=== PATIENT | female | born 1960 | race Caucasian/White ===

== ENCOUNTER 2017-05-20 14:04 | Emergency (ER) | payer OTHER ==
[~2017-05-20] VITALS: Ht 160 cm; Wt 68.0 kg
[~2017-05-20 14:04] MED LIST: BENADRYL25 MG PO; CYCL10 PO; DIAZ5 PO; HYDMOR2 PO; Hydrochlorothia25 MG PO; LORA1 PO; METO100ER PO; Multiple Vitam1 EAC1 PO; Naproxen500 MG PO; Norco 7.5-3251 EACH PO; OXYACE5T PO; PRED20 PO; PROBIOTIC1 EAC1 PO; Pepcid40 MG PO; Prednisone20 MG PO; Requip3 MG PO; STOOL SOFTENER50 MG PO; TRAZ100 PO; Zofran Odt4 MG SL
[2017-05-20 14:38] LABS: BASOPHILS ABSOLUTE AUTO 0.03 K/mm3 (0.00-0.23); BASOPHILS PERCENT AUTO 0 % (0-2); EOSINOPHILS ABSOLUTE AUTO 0.08 K/mm3 (0.00-0.68); EOSINOPHILS PERCENT AUTO 1 % (0-6); Hematocrit 39.1 % (33.0-51.0); Hemoglobin 13.4 g/dL (11.5-16.0); IMMATURE GRAN ABSOLUTE AUTO 0.01 K/mm3 (0.00-0.10); IMMATURE GRAN PERCENT AUTO 0 % (0-1); LYMPHOCYTES ABSOLUTE AUTO 2.04 K/mm3 (0.84-5.20); LYMPHOCYTES PERCENT AUTO 23 % (21-46); MONOCYTES ABSOLUTE AUTO 0.57 K/mm3 (0.16-1.47); MONOCYTES PERCENT AUTO 7 % (4-13); Mean Corpuscular HGB 30.4 pg (26.0-34.0); Mean Corpuscular HGB Conc 34.3 g/dL (31.5-36.5); Mean Corpuscular Volume 89 fL (80-100); Mean Platelet Volume 9.1 fL (9.1-12.4); NEUTROPHILS ABSOLUTE AUTO 6.08 K/mm3 (1.96-9.15); NEUTROPHILS PERCENT AUTO 69 % (41-73); Platelet Count 239 K/mm3 (150-400); RDW Coefficient Variation 12.6 % (11.7-14.2); Red Blood Cell Count 4.41 M/mm3 (3.80-5.20); White Blood Cell Count 8.81 K/mm3 (4.00-11.30)
[2017-05-20 14:56] LABS: Alanine Aminotransfer (ALT/SGP 32 U/L (12-78); Albumin, Blood 4.1 g/dL (3.4-5.0); Alk Phos 98 U/L (50-136); Anion Gap 9 mmol/L (6-16); Aspartate Aminotrans (AST/SGOT 27 U/L (12-37); Bilirubin, Total 0.5 mg/dL (0.1-1.0); Blood Urea Nitrogen 10 mg/dL (8-24); Bun/Creatinine Ratio 15.1 (12.0-20.0); CO2, Blood 26 mmol/L (21-32); Calcium, Blood 8.9 mg/dL (8.5-10.1); Chloride, Blood 97 mmol/L (98-108); Creatinine, Blood 0.66 mg/dL (0.40-1.00); Glomerular Filtration Rate >60 (60-); Glucose, Blood 94 mg/dL (70-99); Potassium, Blood 3.8 mmol/L (3.5-5.5); Sodium, Blood 132 mmol/L (136-145); Total Protein, Blood 8.1 g/dL (6.4-8.2)
[2017-05-20] MEDS ORDERED: TIZANIDINE HCL2 MG PO (15:32)
[2017-05-20] MEDS ORDERED: METO50ER PO (15:33)
== END 2017-05-20 16:48 | disposition home or self-care (01) ==
LOC: ER 14:04
PROVIDERS: Emergency Medicine
DX: R29.90 Unspecified symptoms and signs involving the nervous system (principal); I10 Essential (primary) hypertension; Z79.1 Long term (current) use of non-steroidal anti-inflammatories (NSAID); Z79.899 Other long term (current) drug therapy; Z87.891 Personal history of nicotine dependence
CPT/HCPCS: 36415; 70450; 80053; 81000; 85025; 93005; 93010; 99284

== ENCOUNTER 2017-06-06 08:07 | Emergency (ER) | payer OTHER ==
[~2017-06-06] VITALS: Ht 160 cm; Wt 68.0 kg
[~2017-06-06 08:07] MED LIST changes: +METO50ER PO; +TIZANIDINE HCL2 MG PO
[2017-06-06] MEDS ORDERED: Norco 5-325 Ta1 EACH PO (09:20)
== END 2017-06-06 09:25 | disposition home or self-care (01) ==
LOC: ER 08:07
DX: M25.562 Pain in left knee (principal); Z79.899 Other long term (current) drug therapy; Z87.891 Personal history of nicotine dependence
CPT/HCPCS: 96372; 99283; J1885

== ENCOUNTER 2017-06-14 12:53 | Day surgery (SDC) | payer OTHER ==
[~2017-06-14 12:53] MED LIST changes: +Norco 5-325 Ta1 EACH PO
== END 2017-06-14 22:53 | disposition home or self-care (01) ==
LOC: MHTC 12:53
PROC: 3E033TZ Introduction of Destructive Agent into Peripheral Vein, Percutaneous Approach (ICD-10-PCS; principal; 2017-06-14)
DX: I83.811 Varicose veins of right lower extremity with pain (principal); I87.2 Venous insufficiency (chronic) (peripheral)
CPT/HCPCS: 36465; 99152; 99153; J2250; J2405; J3010; J7040

== ENCOUNTER 2019-03-12 13:37 | Inpatient (IN) | payer OTHER ==
[~2019-03-12] VITALS: Ht 160 cm; Wt 78.9 kg
[~2019-03-12 13:37] MED LIST changes: +COLACE CLEAR50 MG PO; -STOOL SOFTENER50 MG PO
[2019-03-12 18:29] LABS: Source, Urine Clean Catch
[2019-03-12 18:35] LABS: Bilirubin, Urine Neg (Neg); Blood, Urine 5+ (Neg); Glucose Qualitative, Urine Neg (Neg); Ketones, Urine 1+ (Neg); Leukocyte Esterase, Urine 3+ (Neg); Nitrite, Urine Neg (Neg); Protein, Urine 3+ (Neg); Urobilinogen, Urine NORM (Normal)
[2019-03-12 18:44] LABS: Appearance, Urine Cloudy (Clear); Bacteria Many /hpf; Color, Urine Brown (P-Yellow); Red Blood Cells, Urine TNTC /hpf (0-2); Squamous Epithelial Cells Few /hpf (Few); White Blood Cells, Urine TNTC /hpf (0-5)
--- NOTE | 2019-03-12 19:39 | NUR ---
SHE ARRIVED TO [facility] FROM THE E.R[facility] AT 1756. SHE WAS ABLE TO STAND DOWN AND TRANSFER TO THE BED WITH SBA. SHE SAID SHE FELT VERY SICK AND WEAK. SHE MENTIONED HER RLS IMMEDIATELY AND SAID SHE NEEDED HER REQUIP NOW. THE TIME AND THE DOSE ORDERED ARE NOT WHAT SHE TAKES AT HOME. I RECEIVED HER [employer] FAX, THEN CALLED THE DOCTOR. SHE AGREED TO THE DOSE AND TIMES THE PATIENT IS USED TO AT HOME. REQUIP STARTED. HYDROCODONE WAS GIVEN FOR PAIN IN HER R HIP, A H/A AND A LITTLE PAIN AT HER IV SITE. IT IS WNL AND THE K-RIDER HAS CONCURRENT NS RUNNING WITH IT. SHE WAS MOSTLY ANXIOUS ABOUT IT. SHE WAS TRYING TO CALM HERSELF DOWN. TELE IS NSR 72. SHE SAYS SHE'LL TRY THE SCD'S ON HER LEGS. SHE WAS DISTRESSED ABOUT HER BROWN URINE. UA RESULTED. IT WILL BE CULTURED. WE NEED A STOOL PANEL BUT SHE DOESN'T THINK SHE WILL HAVE A BM FOR A LONG WHILE BECAUSE SHE HASN'T BEEN EATING. SEIZURE PADS ARE ON THE TOP RAILS. SHE SAYS IF SHE HAS A SEIZURE SHE USUALLY CURLS UP HER RH AND ARM AND BECOMES VACANT. REPORT GIVEN TO THE NIGHT NURSE.
[2019-03-12] MEDS ORDERED: LAMO25 PO ×2 (20:19→20:21)
[2019-03-12 21:25] LABS: Bun/Creatinine Ratio 22.7 (12.0-20.0); Calcium, Blood 7.5 mg/dL (8.5-10.1); Creatinine, Blood 2.07 mg/dL (0.40-1.00); Potassium, Blood 3.1 mmol/L (3.5-5.5)
[2019-03-13 05:04] LABS: BASOPHILS ABSOLUTE AUTO 0.04 K/mm3 (0.00-0.23); BASOPHILS PERCENT AUTO 0 % (0-2); EOSINOPHILS ABSOLUTE AUTO 0.03 K/mm3 (0.00-0.68); EOSINOPHILS PERCENT AUTO 0 % (0-6); Hematocrit 28.8 % (33.0-51.0); Hemoglobin 9.8 g/dL (11.5-16.0); IMMATURE GRAN ABSOLUTE AUTO 0.23 K/mm3 (0.00-0.10); IMMATURE GRAN PERCENT AUTO 1 % (0-1); LYMPHOCYTES ABSOLUTE AUTO 1.16 K/mm3 (0.84-5.20); LYMPHOCYTES PERCENT AUTO 7 % (21-46); MONOCYTES ABSOLUTE AUTO 1.05 K/mm3 (0.16-1.47); MONOCYTES PERCENT AUTO 6 % (4-13); Mean Corpuscular HGB 30.9 pg (26.0-34.0); Mean Corpuscular Volume 91 fL (80-100); NEUTROPHILS ABSOLUTE AUTO 14.48 K/mm3 (1.96-9.15); NEUTROPHILS PERCENT AUTO 85 % (41-73); Platelet Count 239 K/mm3 (150-400); RDW Coefficient Variation 13.7 % (11.7-14.2); RDW Standard Deviation 46.4 fL (35.1-46.3); Red Blood Cell Count 3.17 M/mm3 (3.80-5.20); White Blood Cell Count 16.99 K/mm3 (4.00-11.30)
[2019-03-13 05:42] LABS: Albumin, Blood 1.6 g/dL (3.4-5.0); Albumin/Globulin Ratio 0.4 (0.8-1.8); Bilirubin, Total 0.6 mg/dL (0.1-1.0); Calcium, Blood 7.7 mg/dL (8.5-10.1); Creatinine, Blood 2.09 mg/dL (0.40-1.00); Globulin, Blood 3.7 g/dL (2.2-4.0); Potassium, Blood 3.5 mmol/L (3.5-5.5); Total Protein, Blood 5.3 g/dL (6.4-8.2)
--- NOTE | 2019-03-13 14:15 | NUR ---
Patient is lying in bed and alert. Patient tells me about her medical issues but then gets tearful as she tells me about her daughter in the stationed in [facility]. Patient asks if we could pray for her. I gladly provide prayer for her daughter and for the patient. Patient responds well and thanks me for the visit.
--- NOTE | 2019-03-13 14:42 | NUR ---
permission for care was given 03/13/19 at 1430. Patient is AO x 3, groomed. Good eye contact, affect drowsy.
--- NOTE | 2019-03-13 15:16 | NUR ---
PT gave permission for care on 03/13/2019 at 1430.
--- NOTE | 2019-03-13 18:28 | NUR ---
SHE FEELS BETTER THIS EVENING THAN SHE DID YESTERDAY OR THIS MORNING. SHE REMAINS WEAK AND GENERALLY FEELING BAD BUT NOT BEFORE. ROUNDED TODAY. MUCH WAS DISCUSSED. SHE REMAINS ON [employer]. HER BP IS STABLE, THOUGH SHE IS TAKING A SMALLER DOSE THAN AT HOME. HER TELE IS NSR IN THE 70'S. ALL HER LABS ARE IMPROVING. IVF'S CONTINUE. IV ROCEPHIN HAS BEEN STARTED. E.R. GI PANEL ORDER WAS CANCELLED. MD SEE NO NEED. NO BM TODAY. DIET WAS ADVANCED TO FL. HER APPETITE IS POOR. NO SEIZURE TODAY. HER IV SITE WAS CHANGED TO HER RFA WITH SOME DIFFICULTY. HER VEINS ARE VALVULAR.
--- NOTE | 2019-03-14 00:23 | NUR ---
pt had several attempts with veinfinder to establish IV access. Unsuccessful. Not documented new IV present when this shift started. PT reports ultrasound required to start. Patent infusing well.
[2019-03-14 05:05] LABS: BASOPHILS ABSOLUTE AUTO 0.04 K/mm3 (0.00-0.23); BASOPHILS PERCENT AUTO 0 % (0-2); EOSINOPHILS ABSOLUTE AUTO 0.03 K/mm3 (0.00-0.68); EOSINOPHILS PERCENT AUTO 0 % (0-6); Hemoglobin 10.2 g/dL (11.5-16.0); IMMATURE GRAN ABSOLUTE AUTO 0.29 K/mm3 (0.00-0.10); IMMATURE GRAN PERCENT AUTO 2 % (0-1); LYMPHOCYTES ABSOLUTE AUTO 1.39 K/mm3 (0.84-5.20); LYMPHOCYTES PERCENT AUTO 10 % (21-46); MONOCYTES ABSOLUTE AUTO 0.98 K/mm3 (0.16-1.47); MONOCYTES PERCENT AUTO 7 % (4-13); Mean Corpuscular HGB 31.1 pg (26.0-34.0); Mean Corpuscular Volume 92 fL (80-100); Mean Platelet Volume 9.1 fL (9.1-12.4); NEUTROPHILS ABSOLUTE AUTO 10.91 K/mm3 (1.96-9.15); NEUTROPHILS PERCENT AUTO 80 % (41-73); Platelet Count 285 K/mm3 (150-400); RDW Coefficient Variation 14.2 % (11.7-14.2); RDW Standard Deviation 47.8 fL (35.1-46.3); Red Blood Cell Count 3.28 M/mm3 (3.80-5.20); White Blood Cell Count 13.64 K/mm3 (4.00-11.30)
[2019-03-14 05:46] LABS: Bun/Creatinine Ratio 22.2 (12.0-20.0); Calcium, Blood 7.8 mg/dL (8.5-10.1); Creatinine, Blood 1.44 mg/dL (0.40-1.00)
--- NOTE | 2019-03-14 06:20 | NUR ---
PT continues on IVF with potassium. Creatinine improving. Started on rocephin to tx UTI and urine growing gram neg rods. Urine continues cloudy but red has resolved. now yellow urine adequates amts. Pain improved, medicated x 1 with norco 5/325 mg tab. Up with some assist gait more steady. less nausea tolearated some oral intake full liquids. poor appetite. Seizure precautions continue. had IV keppra. Has supportive family extended.
--- NOTE | 2019-03-14 17:36 | NUR ---
PT A/O, PLESANT AND COOPERATIVE. PT AMBULATED WITH PHYSICAL THERAPY THIS AFTERNOON. PT DIET ADVANCED PER DR CHIN. PT RECIEVING IV ANTIBIOTICS.
--- NOTE | 2019-03-14 23:55 | NUR ---
PATIENT REPORTED BACK PAIN AT SHIFT CHANGE. BP 164/84 AND PULSE 125. DAY SHIFT NURSE GAVE NORCO PER EMAR AND PAIN REDUCED WITH BP 144/99 AND HR 107. CALL LIGHT IN REACH.
--- NOTE | 2019-03-15 04:03 | NUR ---
SHIFT SUMMARY PATIENT HAD NO ACUTE CHANGES OBSERVED. AXOX 3 AND SBA TO BR. BP ELEVATED AT SHIFT CHANGE WITH PAIN 164/81 AND TACHY AT 125. DAY RN GAVE NORCO PER EMAR AND REDUCED PAIN AND BP REASSESSED AT 144/99 AND HR AT 107. PIV REMAINS INTACT. PLASTER TENDER REPORTS ST 115. SEIZURE PRECAUTIONS PADS IN PLACE. DENIES SOB AND N/V. FRIEND PRESENT AT SHIFT CHANGE. COOPERATIVE WITH CARE. CALL LIGHT IN REACH. BED IN LOWEST POSITION. WILL CONTINUE TO MONITOR UNTIL DAY SHIFT NURSE ASSUMES CARE.
[2019-03-15 05:42] LABS: Bun/Creatinine Ratio 17.4 (12.0-20.0); Calcium, Blood 8.2 mg/dL (8.5-10.1); Creatinine, Blood 1.21 mg/dL (0.40-1.00); Potassium, Blood 4.3 mmol/L (3.5-5.5)
[2019-03-15] MEDS ORDERED: ACET500 PO (11:08)
[2019-03-15] MEDS ORDERED: LEVE500 PO (11:09)
--- NOTE | 2019-03-15 13:56 | NUR ---
PT DISCHARGED PT STABLE AND D/C HOME. PERSCRIPTION FAXED TO [facility] IN [place]. PT D/C BY WHEEL CHAIR AND DAUGHTER ESCORTED BY PRIVATE CARE.
== END 2019-03-15 13:36 | disposition home or self-care (01) | DRG 100 ==
LOC: ER 13:37 → MEDS 16:35
PROVIDERS: Hospitalist; Physician Assistant; ADMIT Internal Medicine
DX: G40.909 Epilepsy, unspecified, not intractable, without status epilepticus (principal); N17.0 Acute kidney failure with tubular necrosis; N39.0 Urinary tract infection, site not specified; E87.6 Hypokalemia; I10 Essential (primary) hypertension; Z87.891 Personal history of nicotine dependence; G25.81 Restless legs syndrome
CPT/HCPCS: 36415; 70450; 74176; 80048; 80053; 81001; 83605; 83735; 84484; 85025; 87040; 87077; 87086; 87186; 93005; 93010; 96365; 96366; 96375; 97110; 97116; 97161; 99285-25; A9270-GY; C9113; J0696; J1644; J1953; J2405; J3480; J7030

== ENCOUNTER → 2019-03-21 | Outpatient (CLI) | payer OTHER ==
[~2019-03-21] MED LIST changes: +ACET500 PO; +LAMO25 PO; +LEVE500 PO
== END | disposition home or self-care (01) ==
LOC: LAB 17:29 → LAB SHORT 17:29
DX: N39.0 Urinary tract infection, site not specified (principal)
CPT/HCPCS: 87086

== ENCOUNTER 2019-06-06 09:01 | Emergency (ER) | payer OTHER ==
[~2019-06-06] VITALS: Ht 157.5 cm; Wt 81.7 kg
[2019-06-06 09:33] LABS: BASOPHILS ABSOLUTE AUTO 0.03 K/mm3 (0.00-0.23); BASOPHILS PERCENT AUTO 0 % (0-2); EOSINOPHILS ABSOLUTE AUTO 0.07 K/mm3 (0.00-0.68); EOSINOPHILS PERCENT AUTO 1 % (0-6); Hematocrit 37.2 % (33.0-51.0); Hemoglobin 12.3 g/dL (11.5-16.0); IMMATURE GRAN ABSOLUTE AUTO 0.02 K/mm3 (0.00-0.10); IMMATURE GRAN PERCENT AUTO 0 % (0-1); LYMPHOCYTES ABSOLUTE AUTO 1.66 K/mm3 (0.84-5.20); LYMPHOCYTES PERCENT AUTO 19 % (21-46); MONOCYTES ABSOLUTE AUTO 0.71 K/mm3 (0.16-1.47); MONOCYTES PERCENT AUTO 8 % (4-13); Mean Corpuscular HGB 31.1 pg (26.0-34.0); Mean Corpuscular HGB Conc 33.1 g/dL (31.5-36.5); Mean Corpuscular Volume 94 fL (80-100); Mean Platelet Volume 9.1 fL (9.1-12.4); NEUTROPHILS ABSOLUTE AUTO 6.09 K/mm3 (1.96-9.15); NEUTROPHILS PERCENT AUTO 71 % (41-73); Platelet Count 301 K/mm3 (150-400); RDW Coefficient Variation 12.3 % (11.7-14.2); RDW Standard Deviation 42.6 fL (35.1-46.3); Red Blood Cell Count 3.95 M/mm3 (3.80-5.20); White Blood Cell Count 8.58 K/mm3 (4.00-11.30)
[2019-06-06 09:57] LABS: Alanine Aminotransfer (ALT/SGP 69 U/L (12-78); Albumin, Blood 3.3 g/dL (3.4-5.0); Albumin/Globulin Ratio 0.7 (0.8-1.8); Alk Phos 146 U/L (50-136); Anion Gap 6 mmol/L (6-16); Aspartate Aminotrans (AST/SGOT 88 U/L (12-37); Bilirubin, Total 0.2 mg/dL (0.1-1.0); Blood Urea Nitrogen 9 mg/dL (8-24); Bun/Creatinine Ratio 13.5 (12.0-20.0); CO2, Blood 25 mmol/L (21-32); Chloride, Blood 104 mmol/L (98-108); Creatinine, Blood 0.67 mg/dL (0.40-1.00); Globulin, Blood 4.6 g/dL (2.2-4.0); Glomerular Filtration Rate >60 (60-); Glucose, Blood 114 mg/dL (70-99); Potassium, Blood 4.2 mmol/L (3.5-5.5); Sodium, Blood 135 mmol/L (136-145); Total Protein, Blood 7.9 g/dL (6.4-8.2); Troponin I <0.015 ng/mL (0.000-0.040)
== END 2019-06-06 11:45 | disposition home or self-care (01) ==
LOC: ER 09:01
PROVIDERS: Emergency Medicine
DX: R07.9 Chest pain, unspecified (principal); I10 Essential (primary) hypertension; G40.909 Epilepsy, unspecified, not intractable, without status epilepticus; Z90.13 Acquired absence of bilateral breasts and nipples; Z79.899 Other long term (current) drug therapy
CPT/HCPCS: 71045; 71260; 80053; 84484; 85025; 85379; 93005; 93010; 99285-25; Q9967

== ENCOUNTER 2020-05-03 16:04 | Emergency (ER) | payer OTHER ==
[~2020-05-03] VITALS: Ht 160 cm; Wt 68.0 kg
[2020-05-03 17:04] LABS: BASOPHILS ABSOLUTE AUTO 0.03 K/mm3 (0.00-0.23); BASOPHILS PERCENT AUTO 1 % (0-2); EOSINOPHILS ABSOLUTE AUTO 0.11 K/mm3 (0.00-0.68); EOSINOPHILS PERCENT AUTO 2 % (0-6); Hematocrit 36.9 % (33.0-51.0); Hemoglobin 12.3 g/dL (11.5-16.0); IMMATURE GRAN ABSOLUTE AUTO 0.01 K/mm3 (0.00-0.10); IMMATURE GRAN PERCENT AUTO 0 % (0-1); LYMPHOCYTES PERCENT AUTO 44 % (21-46); MONOCYTES ABSOLUTE AUTO 0.41 K/mm3 (0.16-1.47); MONOCYTES PERCENT AUTO 7 % (4-13); Mean Corpuscular HGB 31.2 pg (26.0-34.0); Mean Corpuscular HGB Conc 33.3 g/dL (31.5-36.5); Mean Corpuscular Volume 94 fL (80-100); Mean Platelet Volume 9.2 fL (9.1-12.4); NEUTROPHILS ABSOLUTE AUTO 2.73 K/mm3 (1.96-9.15); NEUTROPHILS PERCENT AUTO 46 % (41-73); Platelet Count 253 K/mm3 (150-400); RDW Coefficient Variation 13.2 % (11.7-14.2); RDW Standard Deviation 45.4 fL (35.1-46.3); Red Blood Cell Count 3.94 M/mm3 (3.80-5.20); White Blood Cell Count 5.89 K/mm3 (4.00-11.30)
[2020-05-03 17:34] LABS: Alanine Aminotransfer (ALT/SGP 30 U/L (12-78); Albumin, Blood 3.9 g/dL (3.4-5.0); Alk Phos 99 U/L (50-136); Anion Gap 2 mmol/L (6-16); Aspartate Aminotrans (AST/SGOT 22 U/L (12-37); Bilirubin, Total 0.5 mg/dL (0.1-1.0); Blood Urea Nitrogen 17 mg/dL (8-24); Bun/Creatinine Ratio 18.6 (12.0-20.0); CO2, Blood 29 mmol/L (21-32); Calcium, Blood 9.2 mg/dL (8.5-10.1); Chloride, Blood 106 mmol/L (98-108); Creatinine, Blood 0.92 mg/dL (0.40-1.00); Globulin, Blood 4.1 g/dL (2.2-4.0); Glomerular Filtration Rate >60 (60-); Glucose, Blood 92 mg/dL (70-99); Potassium, Blood 4.4 mmol/L (3.5-5.5); Sodium, Blood 137 mmol/L (136-145)
[2020-05-03] MEDS ORDERED: LAMO25 (21:12)
[2020-05-03] MEDS ORDERED: TRAZ50 PO (21:12)
[2020-05-03] MEDS ORDERED: Prinivil10 MG (21:13)
== END 2020-05-03 22:51 | disposition home or self-care (01) ==
LOC: ER 16:04
PROVIDERS: Physician Assistant
DX: I10 Essential (primary) hypertension (principal); Z79.899 Other long term (current) drug therapy; Z91.013 Allergy to seafood
CPT/HCPCS: 36415; 80053; 85025; 96374; 96375; 99283-25; J0360; J2060

== ENCOUNTER → 2020-06-12 | Outpatient (CLI) | payer OTHER ==
[~2020-06-12] MED LIST changes: +LAMO25; +Prinivil10 MG; +TRAZ50 PO
[2020-06-17 14:10] LABS: HPV 16 Negative (Negative); HPV 18 Negative (Negative); HPV OTHER HR TYPES Positive (Negative)
== END | disposition home or self-care (01) ==
LOC: LAB SHORT 09:45
PROVIDERS: Registered Nurse
DX: Z12.4 Encounter for screening for malignant neoplasm of cervix (principal)
CPT/HCPCS: 87624; 87625; G0123

== ENCOUNTER → 2021-07-24 | Outpatient (CLI) | payer OTHER ==
[2021-07-24 18:50] LABS: BASOPHILS ABSOLUTE AUTO 0.03 K/mm3 (0.00-0.23); BASOPHILS PERCENT AUTO 1 % (0-2); EOSINOPHILS ABSOLUTE AUTO 0.07 K/mm3 (0.00-0.68); EOSINOPHILS PERCENT AUTO 1 % (0-6); Hematocrit 34.6 % (33.0-51.0); Hemoglobin 11.6 g/dL (11.5-16.0); IMMATURE GRAN ABSOLUTE AUTO 0.01 K/mm3 (0.00-0.10); IMMATURE GRAN PERCENT AUTO 0 % (0-1); LYMPHOCYTES ABSOLUTE AUTO 1.73 K/mm3 (0.84-5.20); LYMPHOCYTES PERCENT AUTO 34 % (21-46); MONOCYTES ABSOLUTE AUTO 0.46 K/mm3 (0.16-1.47); MONOCYTES PERCENT AUTO 9 % (4-13); Mean Corpuscular HGB 30.8 pg (26.0-34.0); Mean Corpuscular HGB Conc 33.5 g/dL (31.5-36.5); Mean Corpuscular Volume 92 fL (80-100); Mean Platelet Volume 9.1 fL (9.1-12.4); NEUTROPHILS PERCENT AUTO 55 % (41-73); Platelet Count 256 K/mm3 (150-400); RDW Coefficient Variation 12.8 % (11.7-14.2); Red Blood Cell Count 3.77 M/mm3 (3.80-5.20)
[2021-07-24 19:08] LABS: Calcium, Blood 9.3 mg/dL (8.5-10.1); Creatinine, Blood 0.8 mg/dL (0.40-1.00)
== END | disposition home or self-care (01) ==
LOC: LAB SHORT 16:36
PROVIDERS: Orthopaedic Surgery
DX: Z01.812 Encounter for preprocedural laboratory examination (principal); S83.271A Complex tear of lateral meniscus, current injury, right knee, initial encounter; E11.9 Type 2 diabetes mellitus without complications
CPT/HCPCS: 36415; 80048; 83036; 85025

== ENCOUNTER 2021-07-31 06:04 | Day surgery (SDC) | payer OTHER ==
[~2021-07-31] VITALS: Ht 160 cm; Wt 76.2 kg
[2021-07-31] MEDS ORDERED: TIZA4 PO (07:17)
[2021-07-31] MEDS ORDERED: HYDACE10B PO (07:18)
--- NOTE | 2021-07-31 08:08 | NUR ---
07/31/21 0808 Lyle Corral 1 MG EPI ADDED TO THE FIRST BAG OF LR PER ORDER FOR IRRIGATION. BUPIVACAINE 0.5% 50 MLS MIXED & VERIFIED WITH EPI 0.25 ML TO MAKE BUPIVACAINE 0.5% 1:200,000 FOR INJECTION AT OPSITE BY DR ZARAGOZA.
== END 2021-07-31 10:00 | disposition home or self-care (01) ==
LOC: ORSCSDS 06:04
PROVIDERS: Orthopaedic Surgery
PROC: 0SBC4ZZ Excision of Right Knee Joint, Percutaneous Endoscopic Approach (ICD-10-PCS; principal; 2021-07-31 07:30)
DX: M23.341 Other meniscus derangements, anterior horn of lateral meniscus, right knee (principal); M94.261 Chondromalacia, right knee; M17.11 Unilateral primary osteoarthritis, right knee; I10 Essential (primary) hypertension; E11.9 Type 2 diabetes mellitus without complications; G40.909 Epilepsy, unspecified, not intractable, without status epilepticus; Z79.899 Other long term (current) drug therapy
CPT/HCPCS: 82947; A9270; J0171; J0690; J1100; J1885; J2250; J2405; J2704; J3010; J7120

== ENCOUNTER → 2022-01-22 | Outpatient (CLI) | payer OTHER ==
[~2022-01-22] MED LIST changes: +HYDACE10B PO; +ROPI1; +TIZA4 PO
[2022-01-26 09:47] LABS: Stool Occult Bld Immuno 1 Negative (NEGATIVE)
== END | disposition home or self-care (01) ==
LOC: LAB SHORT 12:00 → LAB 12:00
PROVIDERS: Registered Nurse
DX: Z12.11 Encounter for screening for malignant neoplasm of colon (principal); Z12.12 Encounter for screening for malignant neoplasm of rectum
CPT/HCPCS: G0328

== ENCOUNTER 2024-07-11 07:51 | Day surgery (SDC) | payer OTHER ==
[~2024-07-11] VITALS: Ht 154.9 cm; Wt 64.5 kg
[~2024-07-11 07:51] MED LIST changes: +AMOX-CLAV 875-1 EAC4 PO; +ASPI81CH PO; -LAMO25; +Lactated Ringer's 1,000 ML IV SCH; +Lyrica25 MG PO; +ONDA4ODT MM; +OZEMPIC0.25 MG/02; +OZEMPIC0.25 MG/02 SC; +PREGABALIN50 MG PO; -Prinivil10 MG; +Prinivil10 MG PO; -ROPI1; +Ropinirole HCl1 MG PO; +TRAM50 PO; +Voltaren100 GM TOP
[2024-07-11 08:16] VITALS: BP 100/58
--- NOTE | 2024-07-11 08:26 | NUR ---
Ambulatory in Day SurgeryPre-Op teaching done. Pt verbalizes understanding. Patient confirms NPO status and agrees with scheduled surgery. History, Chart, Medications and Allergies reviewed before start of procedure.Patient states colon prep results clear. Patient States Post-Procedure ride home has been arranged.
[2024-07-11 09:00] VITALS: BP 96/55
[2024-07-11] MEDS ORDERED: propofoL 40 ML IV ONE (09:01)
[2024-07-11] MEDS ORDERED: Phenylephrine HCl 100 MCG/ML-NS 10MLSYR (1MG/10ML) ONE (09:09)
--- NOTE | 2024-07-11 09:09 | NUR ---
07/11/24 0909 Cameron Mcgill History, Chart, Medications and Allergies reviewed before start of procedure.MONITOR INTACT WITH CONTINUOUS PULSE OXIMETRY, CONTINUOUS END TITAL CO2, 3-LEAD EKG AND INTERMITTENT BLOOD PRESSURE.3-LEAD EKG REVIEWED WITH PHYSICIAN PRIOR TO START OF PROCEDURE.O2 VIA POM INTACT THROUGHOUT SEDATION/PROCEDURE.See Anesthesia record.
[2024-07-11 09:37] VITALS: BP 95/62
[2024-07-11 09:45] VITALS: BP 97/68
--- NOTE | 2024-07-11 10:03 | NUR ---
Patient up to Ambulate independently. Gait steady. Discharge instructions reviewed with patient. Patient verbalizes understanding. Copy given to patient to take home. Patient States Post-Procedure ride home has been arranged. Discharged via wheelchair to private car for ride home. PT TOLERATING PO. REPORTS READY TO GO HOME. PER DR PRANAY YUN/4 YEARS.
== END 2024-07-11 10:03 | disposition home or self-care (01) ==
LOC: ORSCMMR 07:51 → ORD 09:00 → ORSCMMR 10:03
PROVIDERS: Internal Medicine Gastroenterology
PROC: 0DBH8ZX Excision of Cecum, Via Natural or Artificial Opening Endoscopic, Diagnostic (ICD-10-PCS; principal; 2024-07-11 09:00)
PROC: 0DBK8ZX Excision of Ascending Colon, Via Natural or Artificial Opening Endoscopic, Diagnostic (ICD-10-PCS; principal; 2024-07-11 09:00)
PROC: 0DBP8ZX Excision of Rectum, Via Natural or Artificial Opening Endoscopic, Diagnostic (ICD-10-PCS; principal; 2024-07-11 09:00)
DX: Z12.11 Encounter for screening for malignant neoplasm of colon (principal); Z86.0102 Personal history of hyperplastic colon polyps; D12.0 Benign neoplasm of cecum; D12.2 Benign neoplasm of ascending colon; K62.1 Rectal polyp; G40.909 Epilepsy, unspecified, not intractable, without status epilepticus; I10 Essential (primary) hypertension; Z79.85 Long-term (current) use of injectable non-insulin antidiabetic drugs; Z79.899 Other long term (current) drug therapy
CPT/HCPCS: 88305; J2371; J2704; J7120